=== PATIENT | male | born 1965 | race Two or more races ===

== ENCOUNTER 2022-04-15 09:29 | Emergency (ER) | payer BC ==
[2022-04-15] MEDS ORDERED: Ondansetron 4 MG/2 ML SDV IVPUSH ONE (09:44)
[2022-04-15] MEDS ORDERED: Sodium Chloride 0.9% 10 ML Syringe FLUSH PRN (09:44)
[2022-04-15] MEDS ORDERED: Pantoprazole 40 MG Vial IVPUSH ONE (09:44)
[2022-04-15] MEDS ORDERED: Sodium Chloride 0.9% 1,000 ML IV SCH (09:45)
[2022-04-15] MEDS ORDERED: LORazepam 2 MG/ML SDV IVPUSH STA (09:53)
[2022-04-15] MEDS ORDERED: Alum Hydroxide/Mag Hydroxide 15 ML, Lidocaine 2% 15 ML PO ONE ×2 (09:54)
[2022-04-15 10:09] LABS: ESTIMATED GFR 89 mL/min (>60)
[2022-04-15] MEDS ORDERED: Iopamidol 755 Mg/ML 100 ML Bottle IV ONE (10:18)
== END 2022-04-15 12:10 | disposition home or self-care (01) ==
LOC: FB.ED 09:29
DX: K80.20 Calculus of gallbladder without cholecystitis without obstruction (principal); K26.9 Duodenal ulcer, unspecified as acute or chronic, without hemorrhage or perforation; F41.1 Generalized anxiety disorder; Z87.891 Personal history of nicotine dependence
CPT/HCPCS: 36415; 74177; 80053; 81001; 82150; 83690; 85025; 96361; 96374; 96375; 99284; A9270; C9113; J2060; J2405; J3490; J7030; Q9967